=== PATIENT | male | born 1985 | race Hispanic/Latino ===

== ENCOUNTER → 2021-03-21 | Outpatient (CLI) | payer OTHER ==
--- NOTE | 2021-03-21 12:54 | REP ---
INDICATION: PAIN IN RIGHT ELBOW COMPARISON: None. TECHNIQUE: AP, lateral, bilateral oblique views of the right elbow. FINDINGS: No acute fracture or dislocation is appreciated. Joint spaces and surrounding soft tissues appear normal. Lateral view demonstrates normal positioning to the anterior and posterior fat pads without evidence for effusion/hemarthrosis. No subcutaneous emphysema or foreign body identified. IMPRESSION: Normal elbow radiographs. <Electronically signed by Alberto Seo > 03/21/21 [id number]
== END ==
LOC: M RAD 12:33
PROVIDERS: ATTEND Physician Assistant
DX: M25.521 Pain in right elbow (principal)

== ENCOUNTER → 2021-10-28 | Outpatient (CLI) | payer OTHER | LOC: M CARPUL 13:59 | PROVIDERS: ATTEND Physician Assistant | DX: R07.9 Chest pain, unspecified (principal) ==

== ENCOUNTER → 2023-07-21 | Outpatient (CLI) | payer OTHER | LOC: M SOG 07:50 | PROVIDERS: ATTEND Physician Assistant | DX: M25.552 Pain in left hip (principal) ==

== ENCOUNTER → 2023-08-11 | Outpatient (CLI) | payer OTHER | LOC: M SOG 10:18 | PROVIDERS: ATTEND Physician Assistant | DX: M25.552 Pain in left hip (principal) ==

== ENCOUNTER → 2023-09-22 | Outpatient (CLI) | payer OTHER | LOC: M PLAIMG 06:47 | PROVIDERS: ATTEND Physician Assistant | DX: M70.62 Trochanteric bursitis, left hip (principal); M76.32 Iliotibial band syndrome, left leg ==

== ENCOUNTER → 2023-10-13 | Outpatient (CLI) | payer OTHER | LOC: M PLARAD 14:10 | PROVIDERS: ATTEND Physician Assistant | DX: M25.562 Pain in left knee (principal) ==

== ENCOUNTER → 2024-04-04 | Outpatient (CLI) | payer OTHER | LOC: M SLEEP 20:00 | PROVIDERS: ATTEND Nurse Practitioner Family | DX: G47.33 Obstructive sleep apnea (adult) (pediatric) (principal) ==